=== PATIENT | male | born 1990 | race Two or more races ===

== ENCOUNTER 2024-08-10 18:30 | Emergency (ER) | payer SELFPAY ==
[~2024-08-10] VITALS: Ht 175.3 cm; Wt 73.0 kg
--- NOTE | 2024-08-10 19:17 | DVH ---
CLINICAL INFORMATION: 34 years old, Male; pain. TECHNIQUE: 3 views of the hand were obtained. COMPARISON: None Findings/ IMPRESSION: Displaced fracture of the base of the 1st metacarpal with extension into the 1st CMC joint.
[2024-08-10] MEDS: LIDOCAINE 1% HCL (LOCAL ANESTH.) INJ 20ML MDV ID ONE (20:06)
[2024-08-10] MEDS: OXYCODONE W/ ACETAMINOPHEN 5/325MG TABLET PO ONE (20:06)
[2024-08-10 20:17] VITALS: BP 118/77; PULSE 102; RESP 18; TEMP 99.5; O2SAT 96
[2024-08-10] MEDS ORDERED: IBUP-1456 PO (20:32)
--- NOTE | 2024-08-10 20:34 | ED.PDOC ---
Back pain HPI HPI Comments THIS IS A 34-YEAR-OLD MALE PRESENTS TO THE ED CHIEF COMPLAINT RIGHT HAND PAIN. STATES WHILE AT WORK A HEAVY BRICK FELL ON TOP OF HIS RIGHT HAND. PATIENT COMPLAINING OF RIGHT HAND PAIN 8/10 ON PAIN SCALE PRESSURE SHARP IN NATURE NONRADIATING TYPE PAIN ALSO COMPLAINING OF SWELLING. DENIES NUMBNESS OR WEAKNESS. ANY OTHER KNOWN INJURY. Chief Complaint: Upper Extremity Time Seen by MD: 18:36 Reviewed Notes: Nurses Notes, Medications, Allergies Allergies: Coded Allergies: NO KNOWN ALLERGIES (Unverified , 08/10/24) Home Meds Active Scripts Ibuprofen (Ibuprofen) 800 Mg Tab, 1 TAB PO TID PRN for 7 Days, #21 TAB Prov:EBONY ANN [employer] 08/10/24 Information Source: Patient Mode of Arrival: Ambulatory Past Medical History PAST MEDICAL HISTORY: Denies Surgical History: Denies all surgeries Family History Family History: Reviewed,noncontributory to illness, No family hx of Cancer, No family hx of DM, No family hx of Heart eladio, No family hx of HTN, No family hx ofKidney eladio, No family hx of Liver eladio, No family hx of Lung eladio, No family hx of Stroke Social History Smoker: Non-Smoker Alcohol: Denies ETOH Use Drugs: Denies Drug Use Constitutional: denies: chills, diaphoresis, fatigue, fever, malaise, sweats, weakness, others EENTM: denies: blurred vision, double vision, ear bleeding, ear discharge, ear drainage, ear pain, ear ringing, eye pain, eye redness, hearing loss, mouth pain, mouth swelling, nasal discharge, nose bleeding, nose congestion, nose pain, photophobia, tearing, throat pain, throat swelling, voice changes, others Respiratory: denies: cough, hemoptysis, orthopnea, SOB at rest, shortness of breath, SOB with excertion, stridor, wheezing, others Cardiovascular: denies: chest pain, dizzy spells, diaphoresis, Dyspnea on exertion, edema, irregular heart beat, left arm pain, lightheadedness, palpita tions, PND, syncope, others Gastrointestinal: denies: abdomen distended, abdominal pain, blood streaked aquilino wels, constipated, diarrhea, dysphagia, difficulty swallowing, hematemesis, melena, nausea, poor appetite, poor fluid intake, rectal bleeding, rectal pain, vomiting, others Genitourinary: denies: burning, dysuria, flank pain, frequency, hematuria, incontinence, penile discharge, penile sore, pain, testicle pain, testicle swelling, urgency, others Neurological: denies: dizziness, fainting, headache, left sided numbness, left sided weakness, numbness, paresthesia, pre-existing deficit, right sided numbness, right sided weakness, seizure, speech problems, tingling, tremors, weakness, others Musculoskeletal: reports: others (RIGHT HAND PAIN); denies: back pain, gout, joint pain, joint swelling, muscle pain, muscle stiffness, neck pain Integumetry: denies: bruises, change in color, change in hair/nails, dryness, laceration, lesions, lumps, rash, wounds, others Allergic/Immunocompromised: denies: Difficulty Healing, Frequent Infections, Hives, Itching, others Hematologic/Lymphatic: denies: anemia, blood clots, easy bleeding, easy bruising, swollen glands, others Endocrine: denies: excessive hunger, excessive sweating, excessive thirst, excessive urination, flushing, intolerance to cold, intolerance to heat, unexplained weight gain, unexplained weight loss, others Psychiatric: denies: anxiety, bipolar disorder, depression, hopeless, panic disorder, schizophrenia, sleepless, suicidal, others Physical Exam General Appearance: No Apparent Distress, Normal HEENT: Pharynx Normal Neck: Full Range of Motion, Non-Tender Respiratory: Lungs Clear, No Respiratory Distress, Normal Breath Sounds Cardiovascular: No Murmur, Normal Peripheral Pulses, Regular Rate/Rhythm Breast Exam: Deferred Gastrointestinal: Non Tender, Soft Genitalia: Deferred Pelvic: Deferred Rectal: Deferred Extremities: Normal capillary refill, Normal inspection, Normal range of motion, Non-tender, No pedal edema Musculoskeletal : Location: Right Extremity Location: Hand (MODERATE TENDERNESS OVER DORSUM ASPECT OF RIGHT HAND NO NOTED CREPITUS OR BONY PROMINENCE NO NOTED ABRASIONS LESIONS ECCHYMOSIS OR LACERATIONS. SENSORY STRENGTH AND MOTION INTACT. POSITIVE RADIAL PULSE. CAP REFILLS LESS THAN 3 SECONDS.) Apperance: Normal Neurologic: Alert, bungy jump master II-XII nml as Tested, No Motor Deficits, Normal Affect, Normal Mood, No Sensory Deficits Cerebellar Function: Normal Reflexes: Normal Skin: Dry, Normal Color, Warm Lymphatic: No Adenopathy Was a procedure done? Was a procedure done?: No Back Pain Differential Dx Differential Diagnosis: Fracture, Musculoskeletal Pain X-Ray, Labs, Meds, VS Vital Signs Date Time Temp Pulse Resp B/P (MAP) Pulse Ox O2 Delivery O2 Flow Rate FiO2 08/10/24 20:17 99.5 102 18 118/77 (91) 96 99.5 08/10/24 20:17 102 18 96 Room Air 08/10/24 18:42 99.5 114 18 116/82 (93) 97 X-Ray, Labs, Meds, VS Comment RIGHT HAND X-RAY SHOWS FRACTURE OF THE 1ST METACARPAL. PATIENT PLACED IN SPLINT ADVISED PATIENT TO FOLLOW UP WITH HAND AND PCP FOR REFERRAL. ADVISED ON RICE. IBUPROFEN PRESCRIPTION SENT. FOLLOW UP WITH PCP DISCUSSED. ER RETURN PRECAUTIONS GIVEN. AGREES WITH DISCHARGE PLAN OF CARE. Time of 1ST Reevaluation: 20:32 Reevaluation 1ST: Improved Patient Education/Counseling: Diagnosis, Treatment, Prognosis, Need For Follow Up Family Education/Counseling: No Family Present Departure 1 Departure Time of Disposition: 20:32 Impression: Primary Impression: Fracture of first metacarpal Qualified Codes: S62.231A - Other displaced fracture of base of first metacarpal bone, right hand, initial encounter for closed fracture Disposition: HOME / SELF CARE / HOMELESS Condition: Stable e-Prescriptions Ibuprofen (Ibuprofen) 800 Mg Tab 1 TAB PO TID PRN for 7 Days, #21 TAB Prov: EBONY ANN 08/10/24 Discharged With: Self Critical Care Note Critical Care Time?: No Stability Stability form required: EBONY Holland Aug 10, 2024 20:34
== END 2024-08-10 20:42 | disposition home or self-care (01) ==
LOC: ER 18:30
DX: S62.291A Other fracture of first metacarpal bone, right hand, initial encounter for closed fracture (principal); X58.XXXA Exposure to other specified factors, initial encounter; Y93.89 Activity, other specified; Y92.89 Other specified places as the place of occurrence of the external cause; Y99.8 Other external cause status
CPT/HCPCS: 73130; 99283; J2003; 29125